=== PATIENT | male | born 1945 | race Caucasian/White ===

== ENCOUNTER 2018-04-10 10:48 | Emergency (ER) | payer MEDICARE, OTHER ==
[~2018-04-10] VITALS: Ht 190.5 cm; Wt 100.0 kg
[2018-04-10] MEDS ORDERED: SODIUM CHLORIDE FLUSH 10ML SYR IVF ONE (12:00)
[2018-04-10 12:04] LABS: ALBUMIN 3.2 g/dL (3.4-5.0); ANION GAP 7 mmol/L (5-15); CALCIUM 8.6 mg/dL (8.5-10.1); CHLORIDE 111 mmol/L (98-107); CREATININE 1.17 mg/dL (0.7-1.3)
[2018-04-10 12:18] LABS: BASOPHILS # (AUTO) 0.02 x10^3/uL (0-0.1); BASOPHILS % (AUTO) 0 % (0-1); EOSINOPHILS # (AUTO) 0.34 x10^3/uL (0-0.4); EOSINOPHILS % (AUTO) 5 % (1-7); LYMPHOCYTES # (AUTO) 1.53 x10^3/uL (1-3.4); LYMPHOCYTES % (AUTO) 23 % (22-44); MD NO; MEAN CORPUSCULAR HEMOGLOBIN 29.2 pg (27.5-34.5); MEAN CORPUSCULAR HGB CONC 32.7 g/dL (33.2-36.2); MEAN CORPUSCULAR VOLUME 89.1 fL (81-97); MEAN PLATELET VOLUME 8.2 fL (7.4-10.4); MONOCYTES # (AUTO) 0.57 x10^3/uL (0.2-0.8); MONOCYTES % (AUTO) 9 % (2-9); NEUTROPHILS # (AUTO) 4.17 x10^3/uL (1.8-6.8); NEUTROPHILS % (AUTO) 63 % (42-75); PLATELET COUNT 223 x10^3/uL (130-400); RED BLOOD COUNT 4.43 x10^6/uL (4.38-5.82); RED CELL DISTRIBUTION WIDTH 14.6 % (9.4-14.8)
[2018-04-10] MEDS ORDERED: OXYcodone/APAP 10/325MG TABLET ONE (12:43)
[2018-04-10] MEDS ORDERED: OXYcodone/APAP 10/325MG TABLET PO ONE (13:00)
[2018-04-10] MEDS ORDERED: BACITRACIN ZINC OINT 500U/GM, 0.9 GM ONE (13:55)
[2018-04-10 14:36] VITALS: BP 127/54
== END 2018-04-10 15:04 | disposition home or self-care (01) ==
LOC: ED 13:44
DX: G89.29 Other chronic pain (principal); L97.219 Non-pressure chronic ulcer of right calf with unspecified severity; Z87.891 Personal history of nicotine dependence
CPT/HCPCS: 36415; 80048; 82040; 83605; 85025; 99285

== ENCOUNTER 2018-04-20 09:06 | Inpatient (IN) | payer MEDICARE, OTHER ==
[~2018-04-20] VITALS: Ht 190.5 cm; Wt 88.0 kg
[2018-04-20 09:48] VITALS: BP 126/83
[2018-04-20] MEDS ORDERED: SODIUM CHLORIDE 0.9% 1,000 ML IV SCH (09:52)
[2018-04-20] MEDS ORDERED: CEFAZOLIN PMX 2GM/50ML 50 ML IV STA (09:52)
[2018-04-20] MEDS ORDERED: [UNRECOGNIZED DRUG - REMARK] MC SCH (10:00)
[2018-04-20 10:34] LABS: BASOPHILS # (AUTO) 0.08 x10^3/uL (0-0.1); BASOPHILS % (AUTO) 1 % (0-1); EOSINOPHILS # (AUTO) 0.27 x10^3/uL (0-0.4); EOSINOPHILS % (AUTO) 3 % (1-7); LYMPHOCYTES # (AUTO) 1.19 x10^3/uL (1-3.4); LYMPHOCYTES % (AUTO) 15 % (22-44); MD NO; MEAN CORPUSCULAR HEMOGLOBIN 29.6 pg (27.5-34.5); MEAN CORPUSCULAR HGB CONC 33.2 g/dL (33.2-36.2); MEAN CORPUSCULAR VOLUME 89.3 fL (81-97); MEAN PLATELET VOLUME 8.8 fL (7.4-10.4); MONOCYTES % (AUTO) 9 % (2-9); NEUTROPHILS # (AUTO) 5.72 x10^3/uL (1.8-6.8); NEUTROPHILS % (AUTO) 72 % (42-75); PLATELET COUNT 219 x10^3/uL (130-400); RED CELL DISTRIBUTION WIDTH 14.9 % (9.4-14.8)
[2018-04-20 10:43] LABS: ANION GAP 7 mmol/L (5-15); CALCIUM 9.1 mg/dL (8.5-10.1); CHLORIDE 108 mmol/L (98-107); CREATININE 1.16 mg/dL (0.7-1.3)
[2018-04-20] MEDS ORDERED: VANCOMYCIN PMX 1GM/200ML 200 ML IVPB ONE (11:00)
[2018-04-20] MEDS ORDERED: PROTAMINE SULFATE 10 MG/ML, 25ML ONE (11:03)
[2018-04-20] MEDS ORDERED: FLUMAZENIL 0.1 MG/1 ML, 5ML ONE (11:03)
[2018-04-20] MEDS ORDERED: MIDAZOLAM 1 MG/ML, 5ML ONE (11:03)
[2018-04-20] MEDS ORDERED: NITROGLYCERIN 5 MG/ML, 10ML ONE (11:03)
[2018-04-20] MEDS ORDERED: HEPARIN 1,000 UNITS/ML, 10ML ONE (11:03)
[2018-04-20] MEDS ORDERED: FENTANYL PF 100 MCG/2ML ONE (11:03)
[2018-04-20] MEDS ORDERED: NALOXONE 1 MG/ML, 2ML ONE (11:03)
[2018-04-20] MEDS ORDERED: LIDOCAINE-MPF 2%, 2ML ONE (11:20)
[2018-04-20] MEDS ORDERED: ONDANSETRON 2MG/ML, 2ML IVPush PRN (14:00)
[2018-04-20] MEDS ORDERED: PHARMACOKINETIC MONITORING MC PRN (14:00)
[2018-04-20] MEDS ORDERED: VANCOMYCIN PER PHARMACY MC PRN (14:00)
[2018-04-20 14:59] VITALS: BP 149/79
[2018-04-20] MEDS ORDERED: LEVOFLOXACIN/PMX 500MG/100ML 100 ML IV SCH (15:00)
[2018-04-20] MEDS: SODIUM CHLORIDE 0.9% 1,000 ML IV SCH (15:16)
[2018-04-20] MEDS: HYDROcodone/APAP 5/325 TABLET PO PRN ×2 (15:30→20:43)
[2018-04-20 19:33] VITALS: BP 131/77
[2018-04-20] MEDS: ATENOLOL 25 MG TABLET PO SCH (20:44)
[2018-04-20 21:05] LABS: HCT (SEDRATE) 39.1 % (39.2-51.8)
[2018-04-20] MEDS: CEFTAROLINE 400 MG in SODIUM CHLORIDE 0.9% 100 ML IV SCH (22:50)
[2018-04-20] MEDS ORDERED: VANCOMYCIN 1,900 MG in SODIUM CHLORIDE 0.9% 250 ML IV SCH (23:00)
[2018-04-20] MEDS: MORPHINE SULFATE 4 MG/ML, 1ML IV PRN (23:29)
[2018-04-20 23:54] VITALS: BP 109/68
[2018-04-21] MEDS: SODIUM CHLORIDE 0.9% 1,000 ML IV SCH ×3 (00:19→22:17)
[2018-04-21] MEDS: HYDROcodone/APAP 5/325 TABLET PO PRN ×5 (03:14→23:49)
[2018-04-21 04:33] VITALS: BP 113/71
[2018-04-21 05:35] LABS: BASOPHILS # (AUTO) 0.04 x10^3/uL (0-0.1); BASOPHILS % (AUTO) 1 % (0-1); EOSINOPHILS # (AUTO) 0.33 x10^3/uL (0-0.4); EOSINOPHILS % (AUTO) 5 % (1-7); LYMPHOCYTES # (AUTO) 1.09 x10^3/uL (1-3.4); LYMPHOCYTES % (AUTO) 15 % (22-44); MD NO; MEAN CORPUSCULAR HEMOGLOBIN 30.1 pg (27.5-34.5); MEAN CORPUSCULAR HGB CONC 33.4 g/dL (33.2-36.2); MEAN CORPUSCULAR VOLUME 89.9 fL (81-97); MEAN PLATELET VOLUME 9.1 fL (7.4-10.4); MONOCYTES # (AUTO) 0.85 x10^3/uL (0.2-0.8); MONOCYTES % (AUTO) 11 % (2-9); NEUTROPHILS # (AUTO) 5.17 x10^3/uL (1.8-6.8); NEUTROPHILS % (AUTO) 69 % (42-75); PLATELET COUNT 185 x10^3/uL (130-400); RED BLOOD COUNT 4.22 x10^6/uL (4.38-5.82); RED CELL DISTRIBUTION WIDTH 14.8 % (9.4-14.8)
[2018-04-21 05:43] LABS: ANION GAP 7 mmol/L (5-15); CALCIUM 8.7 mg/dL (8.5-10.1); CHLORIDE 108 mmol/L (98-107); CREATININE 1.11 mg/dL (0.7-1.3)
[2018-04-21] MEDS: ENOXAPARIN 40 MG/0.4 ML SQ SCH (06:43)
[2018-04-21] MEDS: ASPIRIN 325 MG TABLET EC PO SCH (06:43)
[2018-04-21 06:55] VITALS: BP 129/68
[2018-04-21 09:40] VITALS: BP 152/73
[2018-04-21] MEDS: ATENOLOL 25 MG TABLET PO SCH ×2 (10:16→22:07)
[2018-04-21] MEDS: CEFTAROLINE 400 MG in SODIUM CHLORIDE 0.9% 100 ML IV SCH ×2 (10:52→22:07)
[2018-04-21 12:40] VITALS: BP 122/68
[2018-04-21] MEDS ORDERED: GADOBUTROL 10 MMOL/10 ML PFS ONE (15:25)
[2018-04-21 19:35] VITALS: BP 120/72
[2018-04-22 01:22] VITALS: BP 131/72
[2018-04-22] MEDS: HYDROcodone/APAP 5/325 TABLET PO PRN ×2 (05:56→09:20)
[2018-04-22 06:47] VITALS: BP 120/66
[2018-04-22] MEDS: SODIUM CHLORIDE 0.9% 1,000 ML IV SCH ×4 (08:49→20:24)
[2018-04-22] MEDS: ASPIRIN 325 MG TABLET EC PO SCH (08:49)
[2018-04-22] MEDS: ENOXAPARIN 40 MG/0.4 ML SQ SCH (08:50)
[2018-04-22] MEDS: ATENOLOL 25 MG TABLET PO SCH ×2 (08:50→21:00)
[2018-04-22] MEDS: CEFTAROLINE 400 MG in SODIUM CHLORIDE 0.9% 100 ML IV SCH ×2 (10:31→23:15)
[2018-04-22 12:09] VITALS: BP 126/60
[2018-04-22] MEDS ORDERED: HEPARIN 5,000 UNITS/ML, 1ML ONE (14:41)
[2018-04-22] MEDS ORDERED: BUPIVACAINE/PF 0.5% ONE (14:41)
[2018-04-22] MEDS ORDERED: BACITRACIN 50,000 UNIT ONE (14:42)
[2018-04-22] MEDS ORDERED: THROMBIN 20,000 UNIT VIAL TP ONE (14:42)
[2018-04-22] MEDS ORDERED: FENTANYL PF 250 MCG/5ML ONE (14:50)
[2018-04-22] MEDS ORDERED: PROPOFOL 10 MG/ML, 20ML ONE (15:40)
[2018-04-22] MEDS ORDERED: ONDANSETRON 2MG/ML, 2ML ONE (15:40)
[2018-04-22] MEDS ORDERED: CEFAZOLIN 1,000 MG ONE (15:40)
[2018-04-22] MEDS ORDERED: DEXAMETHASONE 4 MG/ML, 1ML ONE (15:40)
[2018-04-22] MEDS ORDERED: ROCURONIUM 10 MG/ML,10ML ONE (15:40)
[2018-04-22] MEDS ORDERED: HEPARIN 1,000 UNITS/ML, 10ML ONE (16:39)
[2018-04-22] MEDS ORDERED: PROTAMINE SULFATE 10 MG/ML, 5ML ONE (16:40)
[2018-04-22] MEDS: OXYcodone 5 MG/5 ML ORAL.SOL UDC PO PRN ×2 (18:43→19:01)
[2018-04-22] MEDS: FENTANYL PF 100 MCG/2ML IV PRN ×2 (19:05→19:17)
[2018-04-22 20:49] VITALS: BP 126/72
[2018-04-22] MEDS ORDERED: ACETAMINOPHEN 325 MG TABLET PO PRN (21:30)
[2018-04-22] MEDS: LACTATED RINGERS 1,000 ML IV SCH (21:57)
[2018-04-23 00:11] VITALS: BP 120/71
[2018-04-23] MEDS: MORPHINE SULFATE 4 MG/ML, 1ML IV PRN ×3 (00:17→19:01)
[2018-04-23 04:09] VITALS: BP 122/75
[2018-04-23] MEDS: HYDROcodone/APAP 5/325 TABLET PO PRN ×3 (04:23→12:18)
[2018-04-23] MEDS: ENOXAPARIN 40 MG/0.4 ML SQ SCH (05:15)
[2018-04-23] MEDS: ASPIRIN 325 MG TABLET EC PO SCH (05:15)
[2018-04-23 05:25] LABS: BASOPHILS # (AUTO) 0.01 x10^3/uL (0-0.1); BASOPHILS % (AUTO) 0 % (0-1); EOSINOPHILS % (AUTO) 0 % (1-7); LYMPHOCYTES # (AUTO) 0.67 x10^3/uL (1-3.4); LYMPHOCYTES % (AUTO) 8 % (22-44); MD NO; MEAN CORPUSCULAR HEMOGLOBIN 29.4 pg (27.5-34.5); MEAN CORPUSCULAR HGB CONC 33.1 g/dL (33.2-36.2); MEAN CORPUSCULAR VOLUME 88.9 fL (81-97); MEAN PLATELET VOLUME 8.9 fL (7.4-10.4); MONOCYTES # (AUTO) 0.44 x10^3/uL (0.2-0.8); MONOCYTES % (AUTO) 5 % (2-9); NEUTROPHILS # (AUTO) 6.99 x10^3/uL (1.8-6.8); NEUTROPHILS % (AUTO) 86 % (42-75); PLATELET COUNT 212 x10^3/uL (130-400); RED BLOOD COUNT 4.18 x10^6/uL (4.38-5.82); RED CELL DISTRIBUTION WIDTH 14.2 % (9.4-14.8)
[2018-04-23 05:35] LABS: ALBUMIN 2.6 g/dL (3.4-5.0); ANION GAP 9 mmol/L (5-15); CALCIUM 8.8 mg/dL (8.5-10.1); CHLORIDE 105 mmol/L (98-107); CREATININE 1.01 mg/dL (0.7-1.3)
[2018-04-23 07:09] VITALS: BP 114/65
[2018-04-23] MEDS: LACTATED RINGERS 1,000 ML IV SCH ×2 (08:46→21:37)
[2018-04-23] MEDS: SODIUM CHLORIDE FLUSH 10ML SYR IVF SCH ×2 (08:46→21:00)
[2018-04-23] MEDS: ATENOLOL 25 MG TABLET PO SCH ×2 (08:47→21:37)
[2018-04-23] MEDS: CEFTAROLINE 400 MG in SODIUM CHLORIDE 0.9% 100 ML IV SCH ×2 (10:02→22:32)
[2018-04-23 13:28] VITALS: BP 112/67
[2018-04-23 18:49] VITALS: BP 106/55
[2018-04-23] MEDS: PENTOXIFYLLINE 400 MG TABLET.ER PO SCH (21:37)
[2018-04-24] MEDS: HYDROcodone/APAP 5/325 TABLET PO PRN ×4 (01:49→20:45)
[2018-04-24 01:55] VITALS: BP 120/70
[2018-04-24] MEDS: ASPIRIN 81 MG TABLET CHEW PO SCH (05:57)
[2018-04-24] MEDS: ENOXAPARIN 40 MG/0.4 ML SQ SCH (05:57)
[2018-04-24 06:36] VITALS: BP 109/65
[2018-04-24] MEDS: SODIUM CHLORIDE FLUSH 10ML SYR IVF SCH ×2 (09:00→20:45)
[2018-04-24] MEDS: ATENOLOL 25 MG TABLET PO SCH ×2 (09:00→20:46)
[2018-04-24] MEDS: CLOPIDOGREL 75 MG TABLET PO SCH (09:14)
[2018-04-24] MEDS: PENTOXIFYLLINE 400 MG TABLET.ER PO SCH ×3 (09:14→20:44)
[2018-04-24] MEDS: LACTATED RINGERS 1,000 ML IV SCH ×2 (09:16→20:45)
[2018-04-24] MEDS: CEFTRIAXONE PMX 2GM/50ML 50 ML IV SCH (10:35)
[2018-04-24] MEDS: MORPHINE SULFATE 4 MG/ML, 1ML IV PRN ×2 (11:53→12:42)
[2018-04-24 13:59] VITALS: BP 129/56
[2018-04-24] MEDS ORDERED: MORPHINE SULFATE 4 MG/ML, 1ML IV PRN (15:30)
[2018-04-24 20:22] VITALS: BP 127/68
[2018-04-25 03:26] VITALS: BP 134/62
[2018-04-25] MEDS: ASPIRIN 81 MG TABLET CHEW PO SCH (05:46)
[2018-04-25] MEDS: ENOXAPARIN 40 MG/0.4 ML SQ SCH (05:46)
[2018-04-25] MEDS: HYDROcodone/APAP 5/325 TABLET PO PRN ×3 (05:46→21:33)
[2018-04-25 06:55] VITALS: BP 157/72
[2018-04-25] MEDS: CLOPIDOGREL 75 MG TABLET PO SCH (08:47)
[2018-04-25] MEDS: ATENOLOL 25 MG TABLET PO SCH ×2 (08:47→21:33)
[2018-04-25] MEDS: PENTOXIFYLLINE 400 MG TABLET.ER PO SCH ×3 (08:47→21:33)
[2018-04-25] MEDS: SODIUM CHLORIDE FLUSH 10ML SYR IVF SCH ×2 (08:47→21:34)
[2018-04-25] MEDS: CEFTRIAXONE PMX 2GM/50ML 50 ML IV SCH (09:44)
[2018-04-25 13:10] VITALS: BP 164/81
[2018-04-25] MEDS ORDERED: HEPARIN wt. based STROKE protocol MC PRN (14:00)
[2018-04-25] MEDS ORDERED: HEPARIN 25,000 UNITS/500ML PMX 500 ML IV PRN (14:00)
[2018-04-25] MEDS: LACTATED RINGERS 1,000 ML IV SCH (16:29)
[2018-04-25] MEDS: MAGNESIUM HYDROXIDE 8%, 30ML UDC PO PRN (18:15)
[2018-04-25 18:59] VITALS: BP 149/81
[2018-04-26] MEDS: LACTATED RINGERS 1,000 ML IV SCH ×3 (01:46→22:55)
[2018-04-26 03:04] VITALS: BP 104/76
[2018-04-26] MEDS: ENOXAPARIN 40 MG/0.4 ML SQ SCH (06:13)
[2018-04-26] MEDS: ASPIRIN 81 MG TABLET CHEW PO SCH (06:13)
[2018-04-26 06:30] VITALS: BP 112/68
[2018-04-26] MEDS: ATENOLOL 25 MG TABLET PO SCH ×2 (09:00→20:22)
[2018-04-26] MEDS: SODIUM CHLORIDE FLUSH 10ML SYR IVF SCH ×2 (09:00→21:00)
[2018-04-26] MEDS: CLOPIDOGREL 75 MG TABLET PO SCH (09:15)
[2018-04-26] MEDS: PENTOXIFYLLINE 400 MG TABLET.ER PO SCH ×3 (09:15→20:22)
[2018-04-26] MEDS: DOCUSATE 100 MG CAPSULE PO SCH (09:15)
[2018-04-26] MEDS: HYDROcodone/APAP 5/325 TABLET PO PRN ×3 (10:10→22:55)
[2018-04-26] MEDS: CEFTRIAXONE PMX 2GM/50ML 50 ML IV SCH (10:11)
[2018-04-26] MEDS ORDERED: HYDROmorphone 2 MG/ML, 1ML IV PRN (11:00)
[2018-04-26] MEDS ORDERED: LORazepam 2 MG/ML, 1ML IV PRN (11:00)
[2018-04-26 14:00] VITALS: BP 120/73
[2018-04-26 20:11] VITALS: BP 131/70
[2018-04-27 03:39] VITALS: BP 111/47
[2018-04-27 05:54] LABS: BASOPHILS # (AUTO) 0.04 x10^3/uL (0-0.1); BASOPHILS % (AUTO) 1 % (0-1); EOSINOPHILS # (AUTO) 0.52 x10^3/uL (0-0.4); EOSINOPHILS % (AUTO) 8 % (1-7); LYMPHOCYTES # (AUTO) 1.19 x10^3/uL (1-3.4); LYMPHOCYTES % (AUTO) 19 % (22-44); MD NO; MEAN CORPUSCULAR HGB CONC 33.8 g/dL (33.2-36.2); MEAN CORPUSCULAR VOLUME 88.7 fL (81-97); MEAN PLATELET VOLUME 8.6 fL (7.4-10.4); MONOCYTES # (AUTO) 0.66 x10^3/uL (0.2-0.8); MONOCYTES % (AUTO) 10 % (2-9); NEUTROPHILS # (AUTO) 4.01 x10^3/uL (1.8-6.8); NEUTROPHILS % (AUTO) 63 % (42-75); PLATELET COUNT 235 x10^3/uL (130-400); RED BLOOD COUNT 4.19 x10^6/uL (4.38-5.82); RED CELL DISTRIBUTION WIDTH 14.7 % (9.4-14.8)
[2018-04-27 06:00] LABS: HCT (SEDRATE) 37.2 % (39.2-51.8)
[2018-04-27] MEDS: ASPIRIN 81 MG TABLET CHEW PO SCH (06:26)
[2018-04-27 06:30] VITALS: BP 113/70
[2018-04-27] MEDS: ATENOLOL 25 MG TABLET PO SCH ×2 (09:00→20:40)
[2018-04-27] MEDS: SODIUM CHLORIDE FLUSH 10ML SYR IVF SCH ×2 (09:00→20:40)
[2018-04-27] MEDS: PENTOXIFYLLINE 400 MG TABLET.ER PO SCH ×3 (09:29→20:40)
[2018-04-27] MEDS: CEFTRIAXONE PMX 2GM/50ML 50 ML IV SCH (09:29)
[2018-04-27] MEDS: DOCUSATE 100 MG CAPSULE PO SCH (09:29)
[2018-04-27] MEDS: CLOPIDOGREL 75 MG TABLET PO SCH (09:30)
[2018-04-27] MEDS: LACTATED RINGERS 1,000 ML IV SCH ×2 (09:30→20:45)
[2018-04-27] MEDS: HYDROcodone/APAP 5/325 TABLET PO PRN (10:46)
[2018-04-27 12:30] VITALS: BP 98/63
[2018-04-27 13:28] VITALS: BP 123/58
[2018-04-27] MEDS ORDERED: morphine SULFATE 10 MG/ML, 1ML IVPush PRN (14:30)
[2018-04-27] MEDS: ENOXAPARIN 40 MG/0.4 ML SQ SCH (20:41)
[2018-04-27 21:05] VITALS: BP 146/80
[2018-04-27] MEDS: MAGNESIUM HYDROXIDE 8%, 30ML UDC PO PRN (21:43)
[2018-04-28] MEDS: HYDROcodone/APAP 5/325 TABLET PO PRN ×4 (01:29→23:26)
[2018-04-28 01:48] VITALS: BP 144/51
[2018-04-28] MEDS: ASPIRIN 81 MG TABLET CHEW PO SCH (05:59)
[2018-04-28] MEDS: LACTATED RINGERS 1,000 ML IV SCH ×2 (05:59→15:50)
[2018-04-28 06:43] VITALS: BP 102/44
[2018-04-28] MEDS: SODIUM CHLORIDE FLUSH 10ML SYR IVF SCH ×2 (08:41→19:53)
[2018-04-28] MEDS: CLOPIDOGREL 75 MG TABLET PO SCH (08:41)
[2018-04-28] MEDS: ATENOLOL 25 MG TABLET PO SCH ×2 (08:41→19:51)
[2018-04-28] MEDS: PENTOXIFYLLINE 400 MG TABLET.ER PO SCH ×3 (08:41→19:52)
[2018-04-28] MEDS: DOCUSATE 100 MG CAPSULE PO SCH (08:41)
[2018-04-28] MEDS: CEFTRIAXONE PMX 2GM/50ML 50 ML IV SCH (09:57)
[2018-04-28 13:36] VITALS: BP 102/61
[2018-04-28 19:24] VITALS: BP 96/52
[2018-04-28] MEDS: ENOXAPARIN 40 MG/0.4 ML SQ SCH (19:53)
[2018-04-28] MEDS: MAGNESIUM HYDROXIDE 8%, 30ML UDC PO PRN (19:56)
[2018-04-29] MEDS: LACTATED RINGERS 1,000 ML IV SCH ×3 (02:11→21:57)
[2018-04-29 03:15] VITALS: BP 117/64
[2018-04-29] MEDS: ASPIRIN 81 MG TABLET CHEW PO SCH (05:35)
[2018-04-29 06:49] VITALS: BP 146/82
[2018-04-29] MEDS: SODIUM CHLORIDE FLUSH 10ML SYR IVF SCH ×2 (09:00→20:17)
[2018-04-29] MEDS: ATENOLOL 25 MG TABLET PO SCH ×2 (09:00→20:16)
[2018-04-29] MEDS: PENTOXIFYLLINE 400 MG TABLET.ER PO SCH ×3 (10:06→20:16)
[2018-04-29] MEDS: CEFTRIAXONE PMX 2GM/50ML 50 ML IV SCH (10:07)
[2018-04-29] MEDS: CLOPIDOGREL 75 MG TABLET PO SCH (10:07)
[2018-04-29] MEDS: DOCUSATE 100 MG CAPSULE PO SCH (10:07)
[2018-04-29 12:44] VITALS: BP 122/68
[2018-04-29] MEDS ORDERED: ASPI-515 PO (13:40)
[2018-04-29] MEDS ORDERED: ACET325T14 PO (13:40)
[2018-04-29] MEDS ORDERED: CLOP75TA PO (13:41)
[2018-04-29] MEDS ORDERED: HYDR-3240 PO (13:41)
[2018-04-29] MEDS ORDERED: CEFD300C37 PO (13:41)
[2018-04-29] MEDS ORDERED: DOCU-131 PO (13:41)
[2018-04-29] MEDS ORDERED: PENT400T9 PO (13:41)
[2018-04-29] MEDS ORDERED: TRAM50TA2 PO (13:41)
[2018-04-29] MEDS ORDERED: SIMV20TA PO (13:43)
[2018-04-29 18:47] VITALS: BP 117/65
[2018-04-29] MEDS: HYDROcodone/APAP 5/325 TABLET PO PRN (18:55)
[2018-04-29] MEDS: ENOXAPARIN 40 MG/0.4 ML SQ SCH (20:16)
[2018-04-29] MEDS: MAGNESIUM HYDROXIDE 8%, 30ML UDC PO PRN (20:16)
[2018-04-30] MEDS: HYDROcodone/APAP 5/325 TABLET PO PRN ×2 (01:13→10:52)
[2018-04-30 02:52] VITALS: BP 128/71
[2018-04-30] MEDS: ASPIRIN 81 MG TABLET CHEW PO SCH (05:45)
[2018-04-30 06:30] LABS: CREATININE 1.08 mg/dL (0.7-1.3)
[2018-04-30] MEDS: CLOPIDOGREL 75 MG TABLET PO SCH (09:05)
[2018-04-30] MEDS: PENTOXIFYLLINE 400 MG TABLET.ER PO SCH (09:05)
[2018-04-30] MEDS: DOCUSATE 100 MG CAPSULE PO SCH (09:05)
[2018-04-30] MEDS: LACTATED RINGERS 1,000 ML IV SCH (09:05)
[2018-04-30] MEDS: ATENOLOL 25 MG TABLET PO SCH (09:05)
[2018-04-30] MEDS: SODIUM CHLORIDE FLUSH 10ML SYR IVF SCH (09:06)
[2018-04-30 09:28] VITALS: BP 111/62
[2018-04-30] MEDS: CEFTRIAXONE PMX 2GM/50ML 50 ML IV SCH (09:37)
[2018-04-30] MEDS ORDERED: POLY17PO5 PO (10:39)
[2018-04-30 14:26] VITALS: BP 94/61
== END 2018-04-30 16:29 | DRG 253 ==
LOC: OUT 09:06 → 4NOR 13:00 → OUT 13:30
PROVIDERS: ADMIT Surgery; ATTEND Internal Medicine
PROC: B41F1ZZ Fluoroscopy of Right Lower Extremity Arteries using Low Osmolar Contrast (ICD-10-PCS; 2018-04-20)
PROC: B4101ZZ Fluoroscopy of Abdominal Aorta using Low Osmolar Contrast (ICD-10-PCS; 2018-04-20)
PROC: 04HK33Z Insertion of Infusion Device into Right Femoral Artery, Percutaneous Approach (ICD-10-PCS; 2018-04-20)
PROC: 0JBN0ZZ Excision of Right Lower Leg Subcutaneous Tissue and Fascia, Open Approach (ICD-10-PCS; 2018-04-22)
PROC: 041K0ZM Bypass Right Femoral Artery to Peroneal Artery, Open Approach (ICD-10-PCS; principal; 2018-04-22 15:00)
DX: I70.201 Unspecified atherosclerosis of native arteries of extremities, right leg (principal); L97.219 Non-pressure chronic ulcer of right calf with unspecified severity; D68.59 Other primary thrombophilia; I82.439 Acute embolism and thrombosis of unspecified popliteal vein; I82.501 Chronic embolism and thrombosis of unspecified deep veins of right lower extremity; E44.0 Moderate protein-calorie malnutrition; I10 Essential (primary) hypertension; I25.10 Atherosclerotic heart disease of native coronary artery without angina pectoris; I83.012 Varicose veins of right lower extremity with ulcer of calf; I87.8 Other specified disorders of veins; Z79.01 Long term (current) use of anticoagulants; I25.2 Old myocardial infarction; Z87.891 Personal history of nicotine dependence; Z95.5 Presence of coronary angioplasty implant and graft; Z88.0 Allergy status to penicillin
CPT/HCPCS: 36200; 36415; 75625; 75716; 80048; 82040; 82565; 85025; 85520; 85651; 86140; 87040; 87070; 87075; 87077; 87186; 87205; 93970; 99156; 99157; A9585; G0378; J0690; J0696; J0712; J1100; J1170; J1644; J1650; J1956; J2250; J2405; J2704; J2720; J3010; J3370; J3490; C1751; C1760; C1768; C1769; C1894; J2270; J2310; J7030; J7120